=== PATIENT | male | born 1970 | race Hispanic/Latino ===

== ENCOUNTER 2023-09-18 12:37 | Emergency (ER) | payer BC ==
[2023-09-18] MEDS ORDERED: Iopamidol 370 76% 100 ML VIAL ONE (12:54)
[2023-09-18] MEDS ORDERED: niCARdipine 25 MG/10 ML SDV ONE ×3 (13:20→17:51)
[2023-09-18] MEDS ORDERED: Acetaminophen 500 MG TAB ONE (13:34)
[2023-09-18] MEDS ORDERED: Magnesium 2 GM/50 ML BAG (IN WATER) ONE (13:35)
[2023-09-18 13:36] LABS: Bilirubin Neg (Negative); Blood, Urine Negative (Negative); Clarity Clear (Clear); Glucose, Urine (Dipstick) 50 mg/dL (Negative); Ketone, Urine 15 mg/dL (Negative); Leukocyte Negative (Negative); Nitrite Negative (Negative); Protein, Urine (Dipstick) 15 mg/dl (Neg-Trace); Urobilinogen Normal mg/dL (Less than 2)
[2023-09-18] MEDS ORDERED: Amlodipine 5 MG TAB ONE (13:43)
[2023-09-18 13:53] LABS: CAUTI Indications for Culture Dysuria,urgency,freq
[2023-09-18 13:56] LABS: Bacteria/HPF None Seen HPF (None Seen); RBC/HPF 0-3 HPF (0-3); Squamous Epithelial 0-3 HPF (0-3); WBC/HPF 0-3 HPF (0-3)
[2023-09-18 13:57] LABS: Urine Culture Reflex No No
[2023-09-18] MEDS ORDERED: niMODipine 30 MG CAP PO SCH (14:00)
[2023-09-18 14:22] LABS: #Basophils 0.08 10x3/uL (0.0-0.2); #Eosinphils 0.12 10x3/uL (0.0-0.5); #Monocytes 0.65 10x3/uL (0.0-1.1); #Neutrophils 8.44 10x3/uL (1.5-8.4); %Basophils 0.7 % (0.0-2.0); %Eosinophils 1.1 % (0.0-6.0); %Lymphocytes 15.2 % (18.0-47.0); %Monocytes 5.9 % (0.0-10.0); %Neutrophils 76.4 % (40.0-75.0); Hematocrit 46.7 % (38.8-50.0); Hemoglobin 16.7 g/dL (13.5-17.5); Mean Corpuscular HGB CONC 35.8 g/dL (32.0-36.0); Mean Corpuscular Hemoglobin 31.3 pg (27.0-33.0); Mean Corpuscular Volume 87.5 fL (81.2-95.1); Mean Platelet Volume 10.6 fL (7.4-10.4); Platelet Count 291 10x3/uL (150-450); RBC Distribution Width 12.2 % (11.5-14.5); Red Blood Cell (RBC) Count 5.34 10x6/uL (4.32-5.72); White Blood Cell (WBC) Count 11.1 10x3/uL (3.5-10.5)
[2023-09-18 14:33] LABS: ALT (SGPT) 38 U/L (8-55); AST (SGOT) 31 U/L (5-34); Albumin 4.7 g/dL (3.5-5.0); Alkaline Phosphatase 98 U/L (40-110); Anion Gap 15 mmol/L (10-20); BUN (Urea Nitrogen) 11 mg/dL (8.4-25.7); Bilirubin, Total 0.7 mg/dL (0.2-1.2); Calc. Creatinine Clearance 0 mL/min (70-130); Calcium 9.1 mg/dL (7.8-10.44); Carbon Dioxide 23 mmol/L (22-29); Chloride 103 mmol/L (98-107); Estimated GFR 98; Globulin 2.6 g/dL (2.4-3.5); Glucose 145 mg/dL (70-105); Magnesium 2.2 mg/dL (1.6-2.6); Potassium 3.3 mmol/L (3.5-5.1); Protein, Total 7.3 g/dL (6.0-8.3); Sodium 138 mmol/L (136-145)
[2023-09-18 14:40] LABS: Troponin I Less than 0.010 ng/mL (< 0.028)
[2023-09-18] MEDS ORDERED: Labetalol HCl 100 MG/20 ML VIAL ONE (14:42)
[2023-09-18] MEDS ORDERED: Potassium Chloride 20 MEQ TAB ONE (14:58)
[2023-09-18 15:15] LABS: INR-International Normal Ratio 0.9; PTT 23.6 sec (22.0-33.0); Prothrombin Time 10.3 sec (9.5-12.1)
[2023-09-18] MEDS ORDERED: Dexamethasone 10 MG/ML VIAL ONE (16:02)
[2023-09-18] MEDS ORDERED: levETIRAcetam 500 MG (5 mL) VIAL ONE (16:02)
== END 2023-09-18 18:08 | disposition short-term general hospital (02) ==
LOC: CSHERS 12:37
DX: I60.9 Nontraumatic subarachnoid hemorrhage, unspecified (principal)
CPT/HCPCS: 70450; 70496; 71045; 80053; 81001; 83735; 83880; 84443; 84484; 85025; 85610; 85730; 93005; 96374; 96375; 96376; J1100; J1953; J3475; Q9967